=== PATIENT | male | born 1980 | race African-American/Black ===

== ENCOUNTER 2018-09-29 15:38 | Emergency (ER) | payer SELFPAY ==
[~2018-09-29] VITALS: Ht 190.5 cm; Wt 111.4 kg
[2018-09-29] MEDS ORDERED: NS 500 ML IV ONE (18:45)
[2018-09-29] MEDS ORDERED: CLINDAMYCIN 900 MG in APPROPRIATE DILUENT 1 EA IV ONE (18:45)
[2018-09-29] MEDS ORDERED: KETOROLAC 60 MG/2 ML VIAL (J1885) IM ONE (18:45)
[2018-09-29] MEDS ORDERED: dexameTHASONE 20 MG/5 ML VIAL (J1100) IV ONE (18:45)
[2018-09-29 19:05] LABS: BASO % 0.3 % (0.0-1.0); EOS % 0.2 % (0.0-3.0); HEMOGLOBIN 14.2 g/dl (13.5-17.5); LYMPH # 1.8 10^3/uL (1.5-4.5); LYMPH % 17.1 % (24.0-44.0); MEAN CORPUSCULAR HEMOGLOBIN 29.9 pg (27.0-33.0); MEAN CORPUSCULAR HGB CONC 32.3 g/dl (32.0-36.5); MEAN CORPUSCULAR VOLUME 92.6 fl (80.0-96.0); MONO # 0.8 10^3/uL (0.0-0.8); MONO % 7.7 % (0.0-5.0); NEUTROPHILS % 74.4 % (36.0-66.0); PLATELET COUNT, AUTOMATED 166 10^3/uL (150-450); RED BLOOD COUNT 4.75 10^6/uL (4.30-6.10); WHITE BLOOD COUNT 10.8 10^3/uL (4.0-10.0)
[2018-09-29 19:24] LABS: BLOOD UREA NITROGEN 14 MG/DL (7-18); C REACTIVE PROTEIN QUANTITATIV 2.25 MG/DL (0.00-0.30); CALCIUM LEVEL 8.7 MG/DL (8.5-10.1); CARBON DIOXIDE LEVEL 29 MEQ/L (21-32); CHLORIDE LEVEL 104 MEQ/L (98-107); CREATININE FOR GFR 1.01 MG/DL (0.70-1.30); GLOMERULAR FILTRATION RATE > 60.0 (>60); GLUCOSE, FASTING 102 MG/DL (70-100); POTASSIUM SERUM 4.3 MEQ/L (3.5-5.1); SODIUM LEVEL 139 MEQ/L (136-145)
[2018-09-29 19:30] LABS: ERYTHROCYTE SEDIMENTATION RATE 16 mm/hr (0-15)
[2018-09-29] MEDS ORDERED: ISOVUE-370 76% 100ML VIAL (Q9967) As Ordered ONE (19:31)
--- NOTE | 2018-09-29 21:10 | REPVR ---
EXAM: CT Maxillofacial With Contrast EXAM DATE/TIME: 09/29/2018 8:20 PM CLINICAL HISTORY: 37 years old, male; Pain; Jaw pain; Additional info: Right upper tooth abscess w/ sinus swelling TECHNIQUE: Axial computed tomography images of the face with intravenous contrast. All CT scans at this facility use at least one of these dose optimization techniques: automated exposure control; mA and/or kV adjustment per patient size (includes targeted exams where dose is matched to clinical indication); or iterative reconstruction. Coronal and sagittal reformatted images were created and reviewed. CONTRAST: 75 ml of ISOVUE 370 administered intravenously. COMPARISON: No relevant prior studies available. FINDINGS: Mastoid air cells: Clear mastoid air cells. Sinuses: The frontal sinuses and ethmoid sinuses and sphenoid sinus appears clear. There is prominent mucosal thickening and a probable mucus retention cyst within the right maxillary sinus. Bones/joints: The mandible appears intact. Dental: It appears that there is fragmentation and cavity formation of the right fourth, fifth and sixth maxillary incisors. Contiguous with these incisors and within the gum line is a 2.7 CM abscess. There is severe soft tissue swelling along the right maxilla as well. Nasopharynx: Clear appearing nasopharynx. Oropharynx: Mild enlargement of the tonsils. Lymph nodes: 2 CM lymph node abutting the right submandibular gland. There are approximately 7 lymph nodes measuring 1 CM in size at the right carotid bifurcation. There are several small lymph nodes at the left carotid bifurcation. Submandibular/Parotid glands: Symmetric appearing submandibular glands. IMPRESSION: Cavity and fragmentation right fourth, fifth and sixth maxillary incisors with contiguous 2.7 CM abscess at the gum line. Electronically signed by: Remigio Romeo On 09/29/2018 21:09:31 PM
[2018-09-29] MEDS ORDERED: AUGM875T28 PO (21:42)
[2018-09-29] MEDS ORDERED: OXYCODONE/APAP 5MG/325MG(BULK FOR ED) 1 TABLET PO ONE (21:45)
[2018-09-29] MEDS ORDERED: AUGMENTIN 875 MG TAB PO ONE (21:45)
[2018-09-29 21:55] VITALS: BP 160/88
--- NOTE | 2018-09-30 06:46 | ED PDOC ---
Post-Departure Follow-Up dr bingham faxed formal report of ct max fac for fu Meka Kumari MD Sep 30, 2018 06:46
== END 2018-09-29 21:53 | disposition home or self-care (01) ==
LOC: M ED 15:38
DX: K04.7 Periapical abscess without sinus (principal)
CPT/HCPCS: 70487; 80048; 85025; 85652; 86140; 96361; 96365; 96372; 96374; 99284; J1100; J1885; Q9967

== ENCOUNTER 2019-04-07 13:59 | Emergency (ER) | payer OTHER, SELFPAY ==
[~2019-04-07] VITALS: Ht 190.5 cm; Wt 104.5 kg
[2019-04-07 13:59] VITALS: BP 141/79
[~2019-04-07 13:59] MED LIST: AUGM875T28 PO
[2019-04-07] MEDS ORDERED: ADACEL/BOOSTRIX VACCINE (DIPHTH/PERTUSS/ACELL/TETANUS)0.5ML SYR (90715) IM ONE (14:45)
== END 2019-04-07 15:34 | disposition home or self-care (01) ==
LOC: M ED 13:59
DX: S70.12XA Contusion of left thigh, initial encounter (principal); W23.1XXA Caught, crushed, jammed, or pinched between stationary objects, initial encounter; Y92.89 Other specified places as the place of occurrence of the external cause; Y99.0 Civilian activity done for income or pay

== ENCOUNTER 2019-06-24 08:54 | Emergency (ER) | payer OTHER, SELFPAY ==
[~2019-06-24] VITALS: Ht 190.5 cm; Wt 106.8 kg
[2019-06-24] MEDS ORDERED: FLUORESCEIN OPHTH 1 MG STRIP OS ONE (09:30)
[2019-06-24] MEDS ORDERED: TETRACAINE 0.5% OPHTH SOLN 4ML OU ONE (09:30)
[2019-06-24 10:00] VITALS: BP 129/58
== END 2019-06-24 10:15 | disposition home or self-care (01) ==
LOC: M ED 08:54
DX: H57.12 Ocular pain, left eye (principal); F17.210 Nicotine dependence, cigarettes, uncomplicated; Z79.899 Other long term (current) drug therapy

== ENCOUNTER 2019-06-29 13:44 | Emergency (ER) | payer MEDICAID, SELFPAY ==
[~2019-06-29] VITALS: Ht 190.5 cm; Wt 106.1 kg
[2019-06-29] MEDS ORDERED: TOBRSUS41 OS (14:08)
[2019-06-29] MEDS ORDERED: TETRACAINE 0.5% OPHTH SOLN 4ML OS ONE (18:00)
[2019-06-29] MEDS ORDERED: FLUORESCEIN OPHTH 1 MG STRIP OS ONE (20:00)
[2019-06-29] MEDS ORDERED: prednisoLONE ACET 1% OPHTH SUSP 5ML OS ONE (20:45)
[2019-06-29 21:00] VITALS: BP 134/87
== END 2019-06-29 21:01 | disposition home or self-care (01) ==
LOC: M ED 13:44
DX: H20.00 Unspecified acute and subacute iridocyclitis (principal)

== ENCOUNTER 2020-12-16 18:15 | Emergency (ER) | payer OTHER ==
[~2020-12-16] VITALS: Ht 190.5 cm; Wt 83.8 kg
[~2020-12-16 18:15] MED LIST changes: +TOBRSUS41 OS
[2020-12-16] MEDS ORDERED: NS 1,000 ML IV ONE (19:40)
[2020-12-16] MEDS ORDERED: ONDANSETRON 4MG/2ML VIAL IV ONE (19:45)
[2020-12-16 20:19] LABS: BASO % 0.8 % (0.0-1.0); EOS % 0.8 % (0.0-3.0); HEMATOCRIT 49.4 % (42.0-52.0); HEMOGLOBIN 15.7 g/dl (13.5-17.5); LYMPH # 2.2 10^3/uL (1.5-5.0); LYMPH % 41.5 % (24.0-44.0); MEAN CORPUSCULAR HEMOGLOBIN 29.5 pg (27.0-33.0); MEAN CORPUSCULAR HGB CONC 31.8 g/dl (32.0-36.5); MEAN CORPUSCULAR VOLUME 92.7 fl (80.0-96.0); MONO # 0.4 10^3/uL (0.0-0.8); MONO % 6.8 % (2.0-8.0); NEUTROPHILS # 2.7 10^3/uL (1.5-8.5); NEUTROPHILS % 49.7 % (36.0-66.0); PLATELET COUNT, AUTOMATED 235 10^3/uL (150-450); RED BLOOD COUNT 5.33 10^6/uL (4.30-6.10); WHITE BLOOD COUNT 5.3 10^3/uL (4.0-10.0)
[2020-12-16] MEDS ORDERED: ISOVUE-370 76% 100ML VIAL As Ordered ONE (20:33)
[2020-12-16 20:41] LABS: ALBUMIN 3.9 GM/DL (3.2-5.2); ALT/SGPT 24 U/L (12-78); BILIRUBIN,DIRECT < 0.1 MG/DL (0.0-0.2); BILIRUBIN,TOTAL 0.2 MG/DL (0.2-1.0); LIPASE 87 U/L (73-393)
--- NOTE | 2020-12-16 20:57 | REPVR ---
PROCEDURE INFORMATION: Exam: CT Abdomen And Pelvis With Contrast Exam date and time: 12/16/2020 8:39 PM Age: 40 years old Clinical indication: Abdominal pain; Generalized; Additional info: Abdominal pain 2 + weeks, weight loss TECHNIQUE: Imaging protocol: Computed tomography of the abdomen and pelvis with contrast. Radiation optimization: All CT scans at this facility use at least one of these dose optimization techniques: automated exposure control; mA and/or kV adjustment per patient size (includes targeted exams where dose is matched to clinical indication); or iterative reconstruction. Contrast material: ISOVUE 370; Contrast volume: 100 ml; Contrast route: INTRAVENOUS (IV); COMPARISON: No relevant prior studies available. FINDINGS: Liver: Normal. No mass. Gallbladder and bile ducts: Normal. No calcified stones. No ductal dilation. Pancreas: Normal. No ductal dilation. Spleen: Normal. No splenomegaly. Adrenal glands: Normal. No mass. Kidneys and ureters: Normal. No hydronephrosis. Stomach and bowel: Boggy appearance of the wall of the gastric antrum associated with mucosal enhancement. Findings may be secondary to peptic ulcer disease to be correlated clinically. Appendix: No evidence of appendicitis. Intraperitoneal space: Unremarkable. No free air. No significant fluid collection. Vasculature: Unremarkable. No abdominal aortic aneurysm. Lymph nodes: Unremarkable. No enlarged lymph nodes. Urinary bladder: Unremarkable as visualized. Reproductive: The prostate gland demonstrates mild hyperplasia. Bones/joints: Moderate to severe central spinal stenosis L4-L5. Bulging annulus L5-S1. Soft tissues: Unremarkable. IMPRESSION: 1. Mild prostatic hyperplasia. 2. Boggy appearance of the wall of the gastric antrum associated with mucosal enhancement. Findings may be secondary to peptic ulcer disease to be correlated clinically. Electronically signed by: Price Rebolledo On 12/16/2020 20:56:58 PM
[2020-12-16] MEDS ORDERED: PANTOPRAZOLE 40MG VIAL (C9113 PER 1) IV ONE (21:25)
[2020-12-16] MEDS ORDERED: OMEP40CA97 PO (21:29)
[2020-12-16] MEDS ORDERED: ZOFR4TAB16 PO (21:31)
[2020-12-16] MEDS ORDERED: AMOX500C PO (21:38)
[2020-12-16] MEDS ORDERED: AMOXICILLIN 500 MG CAP PO ONE (21:45)
[2020-12-16 21:48] LABS: AMPHETAMINES LEVEL URINE NEGATIVE (NEGATIVE); BARBITURATES URINE NEGATIVE (NEGATIVE); BENZODIAZEPINES URINE NEGATIVE (NEGATIVE); CANNABINOIDS URINE POSITIVE (NEGATIVE); COCAINE METABOLITE URINE NEGATIVE (NEGATIVE); METHADONE URINE NEGATIVE (NEGATIVE); OPIATES URINE NEGATIVE (NEGATIVE); PHENCYCLIDINE URINE NEGATIVE (NEGATIVE)
[2020-12-16 21:59] VITALS: BP 156/99
== END 2020-12-16 22:01 | disposition home or self-care (01) ==
LOC: M ED 18:15
DX: K29.00 Acute gastritis without bleeding (principal); N40.0 Benign prostatic hyperplasia without lower urinary tract symptoms; J02.0 Streptococcal pharyngitis; I10 Essential (primary) hypertension; E78.5 Hyperlipidemia, unspecified; F19.10 Other psychoactive substance abuse, uncomplicated; F17.200 Nicotine dependence, unspecified, uncomplicated
CPT/HCPCS: 36415; 74177; 80047; 80076; 80307; 81001; 83690; 85025; 87880; 96361; 96374; 96375; 99284; C9113; J2405; Q9967

== ENCOUNTER 2022-06-16 18:52 | Emergency (ER) | payer OTHER ==
[~2022-06-16] VITALS: Ht 190.5 cm; Wt 97.7 kg
[2022-06-16 18:52] VITALS: BP 159/96
[~2022-06-16 18:52] MED LIST changes: +AMOX500C PO; +BRIM2OPD OP; +OFLO3OPSO OD; +OMEP40CA4 PO; +OPTI0.5D5 OP; +PRED1SUS30 OD; +ZOFR4TAB16 PO
[2022-06-16] MEDS ORDERED: IBUPROFEN 600MG TAB PO ONE (20:25)
== END 2022-06-16 21:00 | disposition home or self-care (01) ==
LOC: M ED 18:52
DX: S62.300A Unspecified fracture of second metacarpal bone, right hand, initial encounter for closed fracture (principal); Y04.0XXA Assault by unarmed brawl or fight, initial encounter; Y92.9 Unspecified place or not applicable; Y93.9 Activity, unspecified; Y99.9 Unspecified external cause status

== ENCOUNTER → 2022-06-22 | Outpatient (CLI) | payer OTHER | LOC: M SOG 09:02 | PROVIDERS: ATTEND Orthopaedic Surgery | DX: S62.360A Nondisplaced fracture of neck of second metacarpal bone, right hand, initial encounter for closed fracture (principal) ==

== ENCOUNTER → 2022-07-06 | Outpatient (CLI) | payer OTHER | LOC: M SOG 07:54 | PROVIDERS: ATTEND Orthopaedic Surgery | DX: Z53.9 Procedure and treatment not carried out, unspecified reason (principal) ==

== ENCOUNTER 2022-08-12 14:16 | Emergency (ER) | payer OTHER ==
[~2022-08-12] VITALS: Ht 190.5 cm; Wt 100.0 kg
[2022-08-12] MEDS ORDERED: dexameTHASONE 20MG/5ML VIAL (J1100 PER 1MG) IV ONE (14:55)
[2022-08-12] MEDS ORDERED: AMPICILLIN SOD/SULBACTAM SOD 3 GM in D5W MINI-BAG PLUS 100 ML IV ONE (14:55)
[2022-08-12] MEDS ORDERED: KETOROLAC 30 MG/ML 1ML VIAL IV ONE (14:55)
[2022-08-12] MEDS ORDERED: NS 1,000 ML IV ONE (15:00)
[2022-08-12 15:18] LABS: BASO % 0.6 % (0.0-1.0); EOS # 0.2 10^3/uL (0.0-0.5); HEMATOCRIT 43.6 % (42.0-52.0); HEMOGLOBIN 14.2 g/dl (13.5-17.5); LYMPH # 1.6 10^3/uL (1.5-5.0); LYMPH % 32.7 % (24.0-44.0); MEAN CORPUSCULAR HEMOGLOBIN 29.9 pg (27.0-33.0); MEAN CORPUSCULAR HGB CONC 32.6 g/dl (32.0-36.5); MEAN CORPUSCULAR VOLUME 91.8 fl (80.0-96.0); MONO # 0.6 10^3/uL (0.0-0.8); NEUTROPHILS # 2.6 10^3/uL (1.5-8.5); NEUTROPHILS % 52.5 % (36.0-66.0); PLATELET COUNT, AUTOMATED 208 10^3/uL (150-450); RED BLOOD COUNT 4.75 10^6/uL (4.30-6.10)
[2022-08-12] MEDS ORDERED: ISOVUE-370 76% 100ML VIAL As Ordered ONE (15:33)
[2022-08-12 15:36] LABS: ERYTHROCYTE SEDIMENTATION RATE 9 mm/hr (0-15)
[2022-08-12] MEDS ORDERED: IBUP80TA PO (16:19)
[2022-08-12] MEDS ORDERED: PERC5TAB12 PO (16:19)
[2022-08-12] MEDS ORDERED: AMOX875T2 PO (16:19)
[2022-08-12 16:23] LABS: RSV AMPLIFICATION NEGATIVE (NEGATIVE)
[2022-08-12 16:32] VITALS: BP 137/89
== END 2022-08-12 17:11 | disposition home or self-care (01) ==
LOC: M ED 14:16
DX: K02.9 Dental caries, unspecified (principal); L03.211 Cellulitis of face; H92.01 Otalgia, right ear; E78.5 Hyperlipidemia, unspecified; F17.200 Nicotine dependence, unspecified, uncomplicated; F12.10 Cannabis abuse, uncomplicated; F10.10 Alcohol abuse, uncomplicated; Z79.899 Other long term (current) drug therapy; Z79.891 Long term (current) use of opiate analgesic
CPT/HCPCS: 70491; 80047; 85025; 85652; 86140; 87040; 87631; 96361; 96374; 96375; 99283; J0295; J1100; J1885

== ENCOUNTER → 2024-01-03 | Outpatient (CLI) | payer OTHER ==
[~2024-01-03] MED LIST changes: +AMOX875T2 PO; +IBUP80TA PO; -OFLO3OPSO OD; +OFLO5DRO OD; +OPTI0.5D2 OP; -OPTI0.5D5 OP; +PERC5TAB12 PO
== END ==
LOC: M SOG 08:19
PROVIDERS: ATTEND Orthopaedic Surgery
DX: M25.561 Pain in right knee (principal)